=== PATIENT | female | born 1980 ===

== ENCOUNTER 2024-06-04 14:38 | Outpatient (AMB) | payer OTHER, SELFPAY ==
--- NOTE | 2024-06-04 14:51 | MHC.PC.OV ---
Vital Signs 06/04/24 14:58 Height 5 ft 6 in Weight 243 lb 6 oz BMI 39.3 BP 140/90 H Blood Pressure Location Lt brachial Position Sitting Respiration 16 Pulse 76 Pulse Source Pulse Oximeter Temp 97.7 F Temp Source Oral Pulse Oximetry (%) 98 Oxygen Delivery Method Room Air Intake Visit Reasons: Est. Care Intake Note: patient here to [facility] Mri Tech Required: No Is last menstrual period known: Yes Last menstrual period: 04/23/24 Post menopausal: No Patient : No Allergies No Known Allergies Allergy (Verified 06/04/24 14:55) Tobacco use date assessed: 06/04/24 Dental Screening Dental Screen Date: 06/04/24 Did you have a dental visit in the last 12 months?: No Did you have a dental problem in the last 6 months where you did not have access to dental care?: No Was dental information given to patient?: Yes HPI HPI Comments History of Present Illness Details This is a 44-year-old female with a past medical history of mild intermittent asthma and obesity presenting to [facility]. She was seen at the [place] office for primary care > 3 years ago. The patient's blood pressure is 140/90. Denies history of hypertension. She drank a caffeinated soda at lunch today. She is a nonsmoker. She does not drink alcohol. She is under a lot of stress. No chest pain or shortness of breath. Mild intermittent asthma-nonsmoker. She takes albuterol as needed. She used it a few times within the past year. She does not have an up-to-date inhaler. She is currently living in a senior care in [place] with her and 6/7 children ages 12 through 26 years. She lost her job after injuring her foot because she did not get medical leave. She is waiting for unemployment to come through. Her eye exam is up-to-date. She will schedule a dental exam. She has had an itchy, red, dry rash on her abdomen and on her temples intermittently for the past couple of months. No new exposures or products. She has had this years ago on her arms. When she applies emollients it helps. She wants to work on weight loss and requests a referral to the dietitian. Her depression and CODY screenings are positive. She feels this is situational. No SI or HI. Declines treatment or referral to behavioral health at this time. 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 She is overdue for a mammogram. ROS: Constitutional: No unexplained weight loss, fever, chills or night sweats. Eyes: No vision changes, blurry vision, double vision, eye pain, eye redness, eye discharge. ENT: No hearing loss, sneezing, congestion, runny nose or sore throat. Respiratory: No shortness of breath, cough or sputum production. Cardiovascular: No chest pain, chest pressure or chest discomfort. No palpitations or pedal edema. Gastrointestinal: No anorexia, nausea, vomiting or diarrhea. No abdominal pain or blood in stool. Genitourinary: No dysuria, hematuria, urinary frequency. Neurologic: No headache, dizziness, syncope, unilateral weakness, ataxia, numbness or tingling in the extremities. Musculoskeletal: No muscle pain, back pain, joint pain or swelling. Hematologic/Lymphatics: No bleeding or bruising. No painful lymph nodes. Skin: See HPI Endocrine: No cold or heat intolerance. No polyuria or polydipsia. Psychiatric: See HPI Physical exam: Constitutional: Alert, in no distress. Head: Normocephalic. Eyes: Pupils are equal, round and reactive to light. Extraocular muscles intact. Ear, Nose and Throat: Canals clear. TMs normal. Normal nasal mucosa. No nasal discharge. No oral lesions. Neck: Supple, Full range of motion. No lymphadenopathy. No palpable thyroid masses. Respiratory: Clear to auscultation. Cardiovascular: S1 S2 regular. No murmurs. Gastrointestinal: Abdomen soft, non-tender, non-distended. Normal bowel sounds. No palpable masses.. Neurologic: No focal neurological deficits. Symmetric patellar reflexes. Moves all extremities spontaneously. Sensation intact bilaterally. Skin: Mildly erythematous, xerotic rash on central abdomen and very light erythema along the left [employer] Musculoskeletal: No gross deformities. Normal range of motion. Extremities: Warm and well perfused. No clubbing, cyanosis or edema. 3+ peripheral pulses bilaterally. Psychiatric: Normal mood and affect [facility] Medical History (Updated 06/04/24 @ 16:03 by OSMEL Oviedo) Elevated blood pressure reading Obesity (BMI 30-39.9) Routine physical examination Situational mixed anxiety and depressive disorder Dermatitis Mild intermittent asthma Anxiety Broken foot Dislocation of foot Asthma Surgical History (Updated 06/04/24 @ 15:30 by OSMEL Oviedo) History of tubal ligation Family History (Updated 06/04/24 @ 15:06 by Kayla Moran) Maternal Grandfather Alcohol abuse High cholesterol Father FH: mental illness High blood pressure High cholesterol Brother FH: mental illness Family/Other Asthma Mother High blood pressure Diabetes Paternal Grandmother High blood pressure Maternal Grandmother Diabetes Social History Housing: Other (senior care) Patient Tobacco Use Status: Never used Tobacco e-Cigarette/Vaping Use: Never Used Second Hand Smoke Exposure: No service: No Current occupational status: unemployed Current occupational exposures/hazards: No Cognitive needs: No Hearing needs: No Vision needs: Yes Female Reproductive History Menstrual Date of last menstrual period: 04/23/24 Questionnaire PHQ-9 Over the last 2 weeks, how often have you been bothered by any of the following problems? 1. Little interest or pleasure in doing things: more than half the days 2. Feeling down, depressed, or hopeless: several days 3. Trouble falling or staying asleep, or sleeping too much: more than half the days 4. Feeling tired or having little energy: several days 5. Poor appetite or overeating: more than half the days 6. Feeling bad about yourself - or that you are a failure or have let yourself or your family down: more than half the days 7. Trouble concentrating on things, such as reading the newspaper or watching television: more than half the days 8. Moving or speaking so slowly that other people could have noticed. Or the opposite - being so fidgety or restless that you have been moving around a lot more than usual: not at all 9. Thoughts that you would be better off or of hurting yourself in some way: not at all Total score: 12 Depression Screening Interpretation: Positive Depression Screening Follow-up: Declines treatment Depression Screening Done: Yes Source: Developed by Drs. Dominic Ortiz, Aurelia Watson, Theron Cabrera and colleagues, with an educational stanley from [email or web address]. Thrive Questionnaire Date Thrive assessed: 06/04/24 I am a: Patient What is your living situation today?: I do not have a steady places to live Within the past 12 months, did the food you bought not last and you didn't have the money to get more?: Sometimes True Within the past 12 months, did you worry whether your food would run out before you got money to buy more?: Sometimes True Do you have trouble paying for medicines?: No Do you have trouble getting transportation to medical appointments?: Yes Do you have trouble paying your heating and electricity bill?: No Do you have trouble taking care of your child, family member or friend?: No Do you have trouble with day-to-day activities such as bathing, preparing meals, shopping, managing finances, etc.?: No Are you currently unemployed and looking for a job?: Yes Are you interested in more education?: Yes Please select the resources that you would like help with: Housing/Senior Care, Food, Transportation, Job search/training and Education Currently or been in a relationship where the following occur: No concerns reported THRIVE Score: 4 AUDIT C Alcohol Use Questionnaire (AUDIT-C) 1. How often do you have a drink containing alcohol?: Never Total Score: 0 CODY-7 AMB Questionnaire CODY-7 Date CODY - 7 assessed: 06/04/24 Feeling nervous, anxious, or on edge: 2 = More than half the days Not being able to stop or control worryin = More than half the days Worrying too much about different things: 1 = Several days Trouble relaxin = Several days Being so restless that it is hard to sit still: 2 = More than half the days Becoming easily annoyed or irritable: 2 = More than half the days Feeling afraid as if something awful might happen: 2 = More than half the days Total CODY-7 score (0-4 normal; 5-9 mild; 10-14 moderate; 15-21 severe): 12 Source: Developed by Drs. Dominic Ortiz, Aurelia Watson, Theron Cabrera and colleagues, with an educational stanley from [email or web address]. CODY-7 Assessment Billing CODY-7 Assessment Tool: CODY-7 Assessment 13597 ACT Questionnaire In the past 4 weeks, how much of the time did your asthma keep you from getting as much done at work, school or at home?: A little of the time During the past 4 weeks, how often have you had shortness of breath?: Once a day During the past 4 weeks, how often did your asthma symptoms wake you up at night or earlier than usual in the morning?: Once or twice per week During the past 4 weeks, how often have you had to use your rescue inhaler or nebulizer medication?: Not at all How would you rate your asthma control during the past 4 weeks?: Well controlled Score: 19 Physical exam (Primary Care) Vital Signs: Last Vital Signs Temp 97.7 F 06/04/24 14:58 Pulse 76 06/04/24 14:58 Resp 16 06/04/24 14:58 BP 140/90 H 06/04/24 14:58 Pulse Ox 98 06/04/24 14:58 Oxygen Delivery Method Room Air 06/04/24 14:58 BMI result Body Mass Index 39.3 Tobacco/Smoking Status: Tobacco use Status Tobacco use date assessed 06/04/24 06/04/24 14:58 Patient Tobacco Use Status Never used Tobacco 06/04/24 14:58 e-Cigarette/Vaping Use Never Used 06/04/24 14:58 PHQ-9: PHQ-9 Score PHQ-9: Total score 12 06/04/24 15:09 Depression Screening Interpretation: Positive Depression Screening Follow-up: Declines treatment Thrive Assessment: Date of Thrive Assessment Date Thrive assessed 06/04/24 06/04/24 15:09 Currently or been in a relationship where the following occur: No concerns reported Assessment and Plan Assessment & Plan (1) Routine physical examination: Code(s): Z00.00 - Encounter for general adult medical examination without abnormal findings Plan: Patient is seen today for a routine physical. As part of this visit we reviewed the following issues, which are considered and essential part of preventative health in this age group: - Breast Cancer screening - Annual Obstetrics Nurse Practitioner exam - referred - Screening for colon cancer - due at age 45 - Blood pressure screening - Cholesterol screening - Osteoporosis prevention including calcium/vitamin D intake, weight bearing exercise & smoking cessation - Nutritional and exercise counseling - Counseling of injury prevention including fire prevention, smoke alarms and seat belt usage - Screening for depression - Prevention of and/or testing for infectious diseases - Education about skin cancer - Recommendations about immunizations - Recommendation of an eye exam - Screening for substance abuse (2) Situational mixed anxiety and depressive disorder: Code(s): F43.23 - Adjustment disorder with mixed anxiety and depressed mood Plan: Declines referral/treatment at this time. Monitor. (3) Mild intermittent asthma: Code(s): J45.20 - Mild intermittent asthma, uncomplicated Qualifiers: Asthma complication type: uncomplicated Qualified Code(s): J45.20 - Mild intermittent asthma, uncomplicated Plan: Albuterol 2 puffs every 4 hours as needed for coughing, wheezing or shortness of breath. (4) Dermatitis: Code(s): L30.9 - Dermatitis, unspecified Plan: Topical triamcinolone b.i.d. times 10 days to abdominal rash. Call if symptoms do not resolve. Referred to Dermatology. Apply emollient twice daily. (5) Obesity (BMI 30-39.9): Code(s): E66.9 - Obesity, unspecified Plan: Check fasting labs and TSH. Refer to dietitian. (6) Elevated blood pressure reading: Code(s): R03.0 - Elevated blood-pressure reading, without diagnosis of hypertension Plan: Recommended avoidance of caffeine. Decrease sodium in diet. Discussed cardiovascular exercise. Plan Follow up in 1 month for blood pressure check. Orders: Orders TSH reflex Free T4 Today J45.20 - Mild intermittent asthma, uncomplicated, L30.9 - Dermatitis, unspecified, Z13.6 - Encounter for screening for cardiovascular disorders Lipid Panel Today E78.5 - Hyperlipidemia, unspecified, J45.20 - Mild intermittent asthma, uncomplicated, L30.9 - Dermatitis, unspecified, Z13.6 - Encounter for screening for cardiovascular disorders MM screening mammo BI Today Z12.31 - Encounter for screening mammogram for malignant neoplasm of breast Complete Blood Count no Diff Today J45.20 - Mild intermittent asthma, uncomplicated, L30.9 - Dermatitis, unspecified, Z13.6 - Encounter for screening for cardiovascular disorders Comprehensive Met. Panel Today J45.20 - Mild intermittent asthma, uncomplicated, L30.9 - Dermatitis, unspecified, Z13.6 - Encounter for screening for cardiovascular disorders Referrals Dermatology Referral L30.9 - Dermatitis, unspecified SALES APPOINTMENT COORDINATOR Referral Z01.419 - Encounter for gynecological examination (general) (routine) without abnormal findings Medications: New albuterol sulfate 90 mcg/actuation 2 inhalations inhalation .every 4 hours 30 days PRN 8.5 grams 0RF shortness of breath or wheezing triamcinolone acetonide 0.1% 1 appl topical BID 10 days 30 grams 0RF Coding Level of Care Code New Pt Prev Care 40-64y(45886) Diagnoses Routine physical examination Z00.00 Situational mixed anxiety and depressive disorder F43.23 Mild intermittent asthma without complication J45.20 Asthma complication type: uncomplicated Dermatitis L30.9 Obesity (BMI 30-39.9) E66.9 Elevated blood pressure reading R03.0 Additional Codes CODY-7 Assessment Billing - CODY-7 Assessment Tool: CODY-7 Assessment 50649 ([id number])
[2024-06-04 14:58] VITALS: BP 140/90; PULSE 76; RESP 16; TEMP 36.5; O2SAT 98; BMI 39.3
== END 2024-06-04 15:45 | disposition home or self-care (01) ==
PROVIDERS: PCP Family Medicine; Visit Provider Physician Assistant Medical
DX: Z00.00 Encounter for general adult medical examination without abnormal findings (principal); F43.23 Adjustment disorder with mixed anxiety and depressed mood; E66.9 Obesity, unspecified; Z68.39 Body mass index [BMI] 39.0-39.9, adult; J45.20 Mild intermittent asthma, uncomplicated; L30.9 Dermatitis, unspecified; R03.0 Elevated blood-pressure reading, without diagnosis of hypertension

== ENCOUNTER → 2024-06-04 14:38 | Outpatient (BNVA) | payer OTHER, SELFPAY | PROVIDERS: PCP Family Medicine; Visit Provider Physician Assistant Medical | DX: Z00.00 Encounter for general adult medical examination without abnormal findings (principal); F43.23 Adjustment disorder with mixed anxiety and depressed mood; J45.20 Mild intermittent asthma, uncomplicated; L30.9 Dermatitis, unspecified; E66.9 Obesity, unspecified; Z68.39 Body mass index [BMI] 39.0-39.9, adult; R03.0 Elevated blood-pressure reading, without diagnosis of hypertension | CPT/HCPCS: 96127; 96160; 99386 ==

== ENCOUNTER 2024-06-09 09:10 | Outpatient (REF) | payer OTHER, SELFPAY ==
[2024-06-09 11:21] LABS: Hematocrit 39.5 % (37.0-47.0); Hemoglobin 12.4 g/dl (12.0-16.0); Mean Corpuscular HGB Conc 31.4 g/dl (31.0-35.0); Mean Corpuscular Hemoglobin 27.3 pg (27.0-33.0); Mean Corpuscular Volume 86.8 fL (80.0-98.0); Mean Platelet Volume 11.8 fL (9.4-12.3); Platelet Count 264 X10*3/uL (160-400); Red Blood Count 4.55 X10*6/uL (4.20-5.50); Red Cell Distribution Width 13.3 % (11.0-16.0); White Blood Count 7.6 X10*3/uL (4.8-10.8)
[2024-06-09 11:27] LABS: Alanine Aminotransferase 23 U/L (0-31); Albumin Level 4.2 g/dL (3.5-5.0); Alkaline Phosphatase 86 U/L (39-117); Anion Gap 11 (12-20); Aspartate Amino Transferase 21 U/L (5-31); Bilirubin Total 0.4 mg/dL (0.0-1.0); Blood Urea Nitrogen 8 mg/dL (9-16); Calcium 9.4 mg/dL (8.4-10.2); Carbon Dioxide 27 mmol/L (22-29); Chloride 106 mmol/L (96-108); Cholesterol 153 mg/dL (<200); Estimated Glomerular Filt Rate > 60; Glucose Random 103 mg/dL (60-115); HDL Cholesterol 41 mg/dL (>40); LDL Cholesterol Calculated 98 mg/dL (<100); Potassium 4.3 mmol/L (3.3-5.1); Sodium 140 mmol/L (135-145); Total Protein 7.6 g/dL (6.5-8.0); Triglycerides 73 mg/dL (<150)
[2024-06-09 11:48] LABS: TSH reflex Free T4 1.64 uIU/mL (0.32-4.0)
== END 2024-06-09 09:11 | disposition home or self-care (01) ==
LOC: HO.WFDLDS 09:10
PROVIDERS: Visit Provider Physician Assistant Medical
DX: E78.5 Hyperlipidemia, unspecified (principal); Z13.6 Encounter for screening for cardiovascular disorders; J45.20 Mild intermittent asthma, uncomplicated; L30.9 Dermatitis, unspecified
CPT/HCPCS: 36415; 80053; 80061; 84443; 85027

== ENCOUNTER 2024-06-18 10:35 | Outpatient (AMB) | payer OTHER, SELFPAY ==
--- NOTE | 2024-06-18 10:39 | A.OFFVIS_ITS ---
VS Expanded 06/18/24 10:40 06/18/24 10:51 Height 5 ft 6 in 5 ft 6 in Weight 242 lb 15.19 oz 243 lb BMI 39.2 39.2 Intake Visit Reasons: Obesity/CONFIRMED Allergies No Known Allergies Allergy (Verified 06/04/24 14:55) Nutrition Presentation Details: Pt presents for MNT for Obesity Pt reports having no meal routine lifestyle food frequency fruits: 0-1/d vegetables: 3x/wk fish: not including starches > 30 /d dairy: 4-5 serving/d beverages: water, juice fried foods: 2x/wk empty juli snacks : 3+/d physical activity: daily life activities etoh/smoking:----- BS Monitoring Most Recent Diabetes Results: Cholesterol 153 mg/dL (<200) 06/09/24 HDL Cholesterol 41 mg/dL (>40) 06/09/24 Triglycerides 73 mg/dL (<150) 06/09/24 Creatinine 0.63 mg/dL (0.5-1.4) 06/09/24 Blood Urea Nitrogen 8 mg/dL (9-16) L 06/09/24 Sodium 140 mmol/L (135-145) 06/09/24 Potassium 4.3 mmol/L (3.3-5.1) 06/09/24 Chloride 106 mmol/L (96-108) 06/09/24 Carbon Dioxide 27 mmol/L (22-29) 06/09/24 Calcium 9.4 mg/dL (8.4-10.2) 06/09/24 AST 21 U/L (5-31) 06/09/24 ALT 23 U/L (0-31) 06/09/24 Total Protein 7.6 g/dL (6.5-8.0) 06/09/24 Albumin 4.2 g/dL (3.5-5.0) 06/09/24 OGP-Eolhkuq-Wr.Jeor Equation Height: 5 ft 6 in Weight: 243 lb Resting Metabolic Rate: 1776.32 Calculated Activity Level: Sedentary Calories Needed to Maintain Weight: 2131.58 Diagnosis Nutrition problem #1: excessive energy intake As related to (etiology) #1: diagnosis As evidenced by (sign/symptom) #1: high BMI (39 on 07/02) and knowledge deficit of diet [facility] Medical History (Updated 06/09/24 @ 11:55 by OSMEL Oviedo) Elevated fasting glucose Elevated blood pressure reading Obesity (BMI 30-39.9) Routine physical examination Situational mixed anxiety and depressive disorder Dermatitis Mild intermittent asthma Anxiety Broken foot Dislocation of foot Asthma Surgical History (Updated 06/04/24 @ 15:30 by OSMEL Oviedo) History of tubal ligation Family History (Updated 06/04/24 @ 15:06 by Kayla Moran MA) Maternal Grandfather Alcohol abuse High cholesterol Father FH: mental illness High blood pressure High cholesterol Brother FH: mental illness Family/Other Asthma Mother High blood pressure Diabetes Paternal Grandmother High blood pressure Maternal Grandmother Diabetes Social History Housing: Other ([facility]) Patient Tobacco Use Status: Never used Tobacco e-Cigarette/Vaping Use: Never Used Second Hand Smoke Exposure: No service: No Current occupational status: unemployed Current occupational exposures/hazards: No Cognitive needs: No Hearing needs: No Vision needs: Yes Assessment & Plan Assessment & Plan (1) Obesity (BMI 30-39.9): Code(s): E66.9 - Obesity, unspecified Category: Medical Plan: Wt: 110 Kg ( 07/02 ) Est kcal needs as per MSJ: 2100 (40% carb, 30% protein/fat) Est fluid needs as per 25-30 ml/d: 3300 Est prot per day as per 1 g/kg bw: 110 Recommend fiber intake : 8-10 g per day and gradually increase to 25-28 g per day for women and 35-38 g for men or as tolerated Recommend sodium intake per day : less than 1500 mg less than 2000 mg Educated patient on: ( R = reviewed V = verbalizes understanding N/R = needs review N/A = not applicable * Food sources of carbohydrate, adequate serving sizes and its role in various health conditions: R * Differences between complex carbohydrates a simple carbohydrates, role of fiber in diet: R V N/R * Lean protein sources of foods: R V NR * Differences between types of fats and role in diet (mono on saturated fat fatty acids, saturated fatty acids, trans fats): R V N/R * Food sources of sodium in salt and healthy modifications for heart health in kidney health: R V R/V * Vitamins and minerals: R V N/R * Healthy plate method concept: R * Physical activity: Benefits a precaution: R V N/R * Hypoglycemia protocol (rule of 15): R V N/R * Dietary prevention of Hyperglycemia: R V R/V Patient Instructions: Work on having 3 scheduled meals per day following healthy plate method see meal ideas consisting of 60 g carb/lean protein/non starchy vegetables Choose 1-2 snacks per day consisting of cup of milk/yogurt/ fruit/nuts, choosing nutrient dense foods keep hydrated by having water/herb/fruit infused water, reducing on sugary beverages Coding Level of Care Code Nutr Indiv Intake (42794) Diagnoses Obesity (BMI 30-39.9) E66.9 Time Spent (min) 30
[2024-06-18 10:40] VITALS: BMI 39.2
[2024-06-24 11:08] VITALS: BMI 39.2
== END 2024-06-18 11:16 | disposition home or self-care (01) ==
PROVIDERS: PCP Family Medicine; Visit Provider Dietitian, Registered
DX: E66.9 Obesity, unspecified (principal)

== ENCOUNTER → 2024-06-18 10:35 | Outpatient (BNVA) | payer OTHER, SELFPAY | PROVIDERS: PCP Family Medicine; Visit Provider Dietitian, Registered | DX: E66.9 Obesity, unspecified (principal); Z68.39 Body mass index [BMI] 39.0-39.9, adult | CPT/HCPCS: 97802 ==

== ENCOUNTER 2024-08-28 11:53 | Outpatient (AMB) | payer OTHER, SELFPAY ==
--- NOTE | 2024-08-28 12:06 | MHC.PC.OV ---
Vital Signs 08/28/24 12:11 Height 5 ft 6 in Weight 240 lb 2 oz BMI 38.8 BP 130/78 Blood Pressure Location Rt brachial Position Sitting Respiration 16 Pulse 72 Pulse Source Pulse Oximeter Temp 97.9 F Temp Source Oral Pulse Oximetry (%) 98 Oxygen Delivery Method Room Air Intake Visit Reasons: lump on back of neck (need discharge information) Intake Note: ED follow up for lump on her neck. pt also states she does have some ear discomfort and headaches due to the lump half of her head becomes numb and tingling. Allergies No Known Allergies Allergy (Verified 08/28/24 12:08) Tobacco use date assessed: 06/04/24 Dental Screening Dental Screen Date: 06/04/24 HPI lump on back of neck (need discharge information) HPI Details 44 y/o female presents to f/u painful lump on L occipital region. Diagnosed with cellulitis. They note she had been given antibiotics and medicine for pain. [facility] Medical History (Updated 08/28/24 @ 12:31 by Jose Urban) Elevated fasting glucose Elevated blood pressure reading Obesity (BMI 30-39.9) Routine physical examination Situational mixed anxiety and depressive disorder Dermatitis Mild intermittent asthma Anxiety Broken foot Dislocation of foot Asthma Surgical History (Updated 06/04/24 @ 15:30 by OSMEL Oviedo) History of tubal ligation Family History (Updated 06/04/24 @ 15:06 by Kayla Moran MA) Maternal Grandfather Alcohol abuse High cholesterol Father FH: mental illness High blood pressure High cholesterol Brother FH: mental illness Family/Other Asthma Mother High blood pressure Diabetes Paternal Grandmother High blood pressure Maternal Grandmother Diabetes Social History Housing: Other (long term) Patient Tobacco Use Status: Never used Tobacco e-Cigarette/Vaping Use: Never Used Second Hand Smoke Exposure: No service: No Current occupational status: unemployed Current occupational exposures/hazards: No Cognitive needs: No Hearing needs: No Vision needs: Yes Questionnaire PHQ-9 Over the last 2 weeks, how often have you been bothered by any of the following problems? 1. Little interest or pleasure in doing things: several days 2. Feeling down, depressed, or hopeless: several days 3. Trouble falling or staying asleep, or sleeping too much: several days 4. Feeling tired or having little energy: several days 5. Poor appetite or overeating: not at all 6. Feeling bad about yourself - or that you are a failure or have let yourself or your family down: several days 7. Trouble concentrating on things, such as reading the newspaper or watching television: not at all 8. Moving or speaking so slowly that other people could have noticed. Or the opposite - being so fidgety or restless that you have been moving around a lot more than usual: not at all 9. Thoughts that you would be better off or of hurting yourself in some way: not at all Total score: 5 Source: Developed by Drs. Dominic Ortiz, Aurelia Watson, Theron Cabrera and colleagues, with an educational stanley from [employer]. Thrive Questionnaire Date Thrive assessed: 06/04/24 I am a: Patient What is your living situation today?: I do not have a steady places to live I am staying at a long term Within the past 12 months, did the food you bought not last and you didn't have the money to get more?: Sometimes True Within the past 12 months, did you worry whether your food would run out before you got money to buy more?: Sometimes True Do you have trouble paying for medicines?: No Do you have trouble getting transportation to medical appointments?: No Do you have trouble paying your heating and electricity bill?: I choose not to answer this question Do you have trouble taking care of your child, family member or friend?: I choose not to answer this question Do you have trouble with day-to-day activities such as bathing, preparing meals, shopping, managing finances, etc.?: No Are you currently unemployed and looking for a job?: Yes Are you interested in more education?: No Please select the resources that you would like help with: Housing/Chcf, Food, Transportation and Job search/training Currently or been in a relationship where the following occur: No concerns reported THRIVE Score: 3 AUDIT C Alcohol Use Questionnaire (AUDIT-C) 1. How often do you have a drink containing alcohol?: Never Total Score: 0 CODY-7 AMB Questionnaire CODY-7 Date CODY - 7 assessed: 06/04/24 Feeling nervous, anxious, or on edge: 1 = Several days Not being able to stop or control worryin = Not at all Worrying too much about different things: 1 = Several days Trouble relaxin = Several days Being so restless that it is hard to sit still: 0 = Not at all Becoming easily annoyed or irritable: 0 = Not at all Feeling afraid as if something awful might happen: 0 = Not at all Total CODY-7 score (0-4 normal; 5-9 mild; 10-14 moderate; 15-21 severe): 3 Source: Developed by Drs. Dominic Ortiz, Aurelia Watson, Theron Cabrera and colleagues, with an educational stanley from [employer]. Review of Systems Const Denies chills, Denies fatigue, Denies fever(s), Denies headache(s) and Denies weakness ENT Denies dizziness and Denies headache(s) Card Denies dyspnea Resp Denies cough, Denies dyspnea, Denies wheezing and Denies other (shortness of breath) Musc Denies numbness and Denies tingling Neuro Denies dizziness, Denies headache(s), Denies numbness, Denies tingling and Denies weakness Psych Denies anxiety and Denies depression Endo Denies fatigue Aller/Immun Denies wheezing Physical exam (Primary Care) Vital Signs: Last Vital Signs Temp 97.9 F 08/28/24 12:11 Pulse 72 08/28/24 12:11 Resp 16 08/28/24 12:11 BP 130/78 08/28/24 12:11 Pulse Ox 98 08/28/24 12:11 Oxygen Delivery Method Room Air 08/28/24 12:11 BMI result Body Mass Index 38.8 Tobacco/Smoking Status: Tobacco use Status Tobacco use date assessed 06/04/24 08/28/24 12:14 Patient Tobacco Use Status Never used Tobacco 08/28/24 12:14 e-Cigarette/Vaping Use Never Used 08/28/24 12:14 PHQ-9: PHQ-9 Score PHQ-9: Total score 5 08/28/24 12:14 Thrive Assessment: Date of Thrive Assessment Date Thrive assessed 06/04/24 08/28/24 12:14 Currently or been in a relationship where the following occur: No concerns reported Const General: well developed; No acute distress Nutritional Appearance: well nourished Orientation/consciousness: patient oriented x3 HENMT Head: Yes normocephalic and Yes atraumatic Eyes General: appearance normal, both eyes and all related structures Pupils: Equal, round and reactive pupils present EOM: EOMs intact bilaterally Resp Effort & Inspection: normal respiratory effort Neuro General: patient oriented x3 and gait normal Cranial nerves: Yes Equal, round and reactive pupils present Psych Affect: normal affect Coding Level of Care Code Est Pt Level 3 (60893) Diagnoses Cellulitis L03.90 Assessment & Plan Assessment & Plan (1) Cellulitis: Code(s): L03.90 - Cellulitis, unspecified Category: Medical Plan: Patient?was?seen?at?the?emergency?department?for?red?painful?swollen?lump?at?left?occiput?and?diagnosed?with?a?cellulitis/abscess?of?the?skin. She?was?put?on?cephalexin?and?patient?notes?that?this?has?improved?considerably. Today?no?longer?has?any?redness?or?tenderness?or?fluctuance.??She?has?a?1?cm?granuloma?the?skin?and?I?advised?her?that?this?will?take?a?long?time?to?reabsorb?but?does?not?need?any?further?care?except?warm?compresses. This?should?gradually?resolve?over?time. She?should?let?us?know?if?she?has?any?increased?pain?redness?or?swelling?though?I?do?not?expect?this. Plan She?can?follow-up?with?her?PCP?who?had?ordered?her?primary?care?labs?and?health?maintenance.
[2024-08-28 12:11] VITALS: BP 130/78; PULSE 72; RESP 16; TEMP 36.6; O2SAT 98; BMI 38.8
== END 2024-08-28 12:36 | disposition home or self-care (01) ==
PROVIDERS: PCP Family Medicine; Visit Provider Family Medicine
DX: L03.90 Cellulitis, unspecified (principal)

== ENCOUNTER → 2024-08-28 11:53 | Outpatient (BNVA) | payer OTHER, SELFPAY | PROVIDERS: PCP Family Medicine; Visit Provider Family Medicine | DX: L03.90 Cellulitis, unspecified (principal) | CPT/HCPCS: 96127; 99212 ==

== ENCOUNTER 2024-10-01 11:46 | Outpatient (AMB) | payer OTHER, SELFPAY ==
--- NOTE | 2024-10-01 12:00 | A.OFFVIS_ITS ---
Vital Signs 10/01/24 12:05 Height 5 ft 6 in Weight 244 lb 4 oz BMI 39.4 BP 124/70 Blood Pressure Location Rt brachial Position Sitting Respiration 16 Pulse 79 Pulse Source Pulse Oximeter Temp 98.0 F Temp Source Oral Pulse Oximetry (%) 98 Oxygen Delivery Method Room Air Intake Visit Reasons: cpe Intake Note: cpe Allergies No Known Allergies Allergy (Verified 10/01/24 12:03) Is last menstrual period known: Yes Last menstrual period: 09/29/24 Post menopausal: No Patient : No Do you need a note to return to daycare/school/sports/work: No HPI Comments Details: This is a 44-year-old female with a past medical history of mild intermittent asthma and obesity presenting for her physical exam. We reviewed the results of her lab work. Her fasting blood sugar was mildly elevated at 103. There is a family history of diabetes. Fingerstick A1c could not be done today due to a machine error. She will go to the lab to have her A1c checked. She did not have any caffeine today. She is a nonsmoker. She does not drink alcohol. Her blood pressure normalized. Mild intermittent asthma-nonsmoker. She takes albuterol as needed. She used it a few times within the past year. She has an inhaler. She is currently living in a group home in [place] with her and 6/7 children ages 12 through 26 years. She lost her job after injuring her foot because she did not get medical leave. She is waiting for unemployment to come through. She is also working with the case management social worker there to get a new job. Her eye exam is up-to-date. She will schedule a dental exam. The rash on her skin resolve with triamcinolone. She was referred to the dietitian to work on weight loss. Her depression and CODY screenings were positive. She feels this is situational. No SI or HI. Declines treatment or referral to behavioral health at this time. She is referred again to Gynecology. Patient was called to do a mammogram, but she was unable to go. I reordered this so she will be called again. She will get her tetanus immunization at the pharmacy. She declines influenza v accine. ROS: Constitutional: No unexplained weight loss, fever, chills or night sweats. Eyes: No vision changes, blurry vision, double vision, eye pain, eye redness, eye discharge. ENT: No hearing loss, sneezing, congestion, runny nose or sore throat. Respiratory: No shortness of breath, cough or sputum production. Cardiovascular: No chest pain, chest pressure or chest discomfort. No palpitations or pedal edema. Gastrointestinal: No anorexia, nausea, vomiting or diarrhea. No abdominal pain or blood in stool. Genitourinary: No dysuria, hematuria, urinary frequency. Neurologic: No headache, dizziness, syncope, unilateral weakness, ataxia, numbness or tingling in the extremities. Musculoskeletal: No muscle pain, back pain, joint pain or swelling. Hematologic/Lymphatics: No bleeding or bruising. No painful lymph nodes. Skin: See HPI Endocrine: No cold or heat intolerance. No polyuria or polydipsia. Psychiatric: See HPI Physical exam: Constitutional: Alert, in no distress. Head: Normocephalic. Eyes: Pupils are equal, round and reactive to light. Extraocular muscles intact. Ear, Nose and Throat: Canals clear. TMs normal. Normal nasal mucosa. No nasal discharge. No oral lesions. Neck: Supple, Full range of motion. No lymphadenopathy. No palpable thyroid masses. Respiratory: Clear to auscultation. Cardiovascular: S1 S2 regular. No murmurs. Gastrointestinal: Abdomen soft, non-tender, non-distended. Normal bowel sounds. No palpable masses.. Neurologic: No focal neurological deficits. Symmetric patellar reflexes. Moves all extremities spontaneously. Sensation intact bilaterally. Skin: Mildly erythematous, xerotic rash on central abdomen and very light erythema along the left yazidism Musculoskeletal: No gross deformities. Normal range of motion. Extremities: Warm and well perfused. No clubbing, cyanosis or edema. 3+ peripheral pulses bilaterally. Psychiatric: Normal mood and affect [facility], [facility] Medical History Elevated fasting glucose Elevated blood pressure reading Obesity (BMI 30-39.9) Routine physical examination Situational mixed anxiety and depressive disorder Dermatitis Mild intermittent asthma Anxiety Broken foot Dislocation of foot Asthma Surgical History History of tubal ligation Family History Maternal Grandfather Alcohol abuse High cholesterol Father FH: mental illness High blood pressure High cholesterol Brother FH: mental illness Family/Other Asthma Mother High blood pressure Diabetes Paternal Grandmother High blood pressure Maternal Grandmother Diabetes Social History Housing: Other (group home) Patient Tobacco Use Status: Never used Tobacco e-Cigarette/Vaping Use: Never Used Second Hand Smoke Exposure: No service: No Current occupational status: unemployed Current occupational exposures/hazards: No Cognitive needs: No Hearing needs: No Vision needs: Yes Female Reproductive History Menstrual Date of last menstrual period: 09/29/24 Physical Exam Vital Signs: Last Vital Signs Temp 98.0 F 10/01/24 12:05 Pulse 79 10/01/24 12:05 Resp 16 10/01/24 12:05 BP 124/70 10/01/24 12:05 Pulse Ox 98 10/01/24 12:05 Oxygen Delivery Method Room Air 10/01/24 12:05 BMI result Body Mass Index 39.4 Assessment & Plan Assessment & Plan (1) Routine physical examination: Code(s): Z00.00 - Encounter for general adult medical examination without abnormal findings Category: Medical Plan Patient is seen today for a routine physical. As part of this visit we reviewed the following issues, which are considered and essential part of preventative health in this age group: - Breast Cancer screening - Annual Batch Tank Controller exam - Screening for colon cancer - Blood pressure screening - Cholesterol screening - Osteoporosis prevention including calcium/vitamin D intake, weight bearing exercise & smoking cessation - Nutritional and exercise counseling - Counseling of injury prevention including fire prevention, smoke alarms and seat belt usage - Screening for depression - Prevention of and/or testing for infectious diseases - Education about skin cancer - Recommendations about immunizations - Recommendation of an eye exam - Screening for substance abuse - Genetic cancer risk screening Schedule physical exam in 1 year. Orders: Orders Hemoglobin A1c Today E11.9 - Type 2 diabetes mellitus without complications, R73.01 - Impaired fasting glucose Coding Level of Care Code Est Pt Prev Care 40-64y(49276) Diagnoses Routine physical examination Z00.00
[2024-10-01 12:05] VITALS: BP 124/70; PULSE 79; RESP 16; TEMP 36.7; O2SAT 98; BMI 39.4
== END 2024-10-01 13:04 | disposition home or self-care (01) ==
PROVIDERS: PCP Physician Assistant Medical; Visit Provider Physician Assistant Medical
DX: Z00.00 Encounter for general adult medical examination without abnormal findings (principal)

== ENCOUNTER 2024-10-01 13:00 | Outpatient (REF) | payer OTHER, SELFPAY ==
[2024-10-01 14:30] LABS: Estimated Average Glucose 126 mg/dL; Hemoglobin A1C 136.7997 umol/L; Total Hemoglobin (HGBA1C) 3239.7329 umol/L
== END 2024-10-01 13:01 | disposition home or self-care (01) ==
LOC: HO.WFDLDS 13:00
PROVIDERS: Visit Provider Physician Assistant Medical
DX: Z00.00 Encounter for general adult medical examination without abnormal findings (principal); E11.9 Type 2 diabetes mellitus without complications
CPT/HCPCS: 36415; 83036; 99396